=== PATIENT | female | born 1960 | race Caucasian/White ===

== ENCOUNTER 2019-10-12 09:16 | Outpatient (CLI) | payer OTHER, SELFPAY ==
--- NOTE | ~2019-10-12 | MM_ITS ---
EXAMINATION: MM screening [facility] BI w isabel HISTORY: Screening mammogram TECHNIQUE: Craniocaudal and mediolateral oblique 3-D tomosynthesis images were obtained and synthetic 2-D images were generated. CAD analysis was submitted and interpreted. COMPARISON: 10/10/2018, 10/04/2017, 06/24/2016 BREAST PARENCHYMAL COMPOSITION: The breasts are heterogeneously dense, which may obscure small masses . FINDINGS: A stable intramammary lymph node is present in the upper outer quadrant of the left breast. There is no evidence of suspicious mass, calcification, or architectural distortion to suggest malig henry in either breast. There has been no suspicious interval change. IMPRESSION: 1. No mammographic evidence of malignancy. 2. Recommend routine screening mammography in one year. BI-RADS Category 2: Benign finding(s). Reviewed, dictated and finalized at location A.
== END 2019-10-12 09:17 | disposition home or self-care (01) ==
LOC: ANHIMG 09:19
PROVIDERS: PCP Family Medicine; Visit Provider Family Medicine
DX: Z12.31 Encounter for screening mammogram for malignant neoplasm of breast (principal)
CPT/HCPCS: 77063; 77067

== ENCOUNTER 2019-11-29 13:57 | Outpatient (CLI) | payer OTHER, SELFPAY ==
--- NOTE | ~2019-11-29 | DEXA_ITS ---
Bone Density Report Name: Angela Beltran Age: 59 Sex: Female Ethnicity: White Date of : 1960 Indication: osteopenia; Referring Provider: Deirdre Mireles Study: Bone densitometry was performed. Exam Date: November 29, 2019 Accession number: [id number] Bone Density: Region BMD T-score Z-score Classification AP Spine (L1-L4) 0.894 -1.4 0.1 Osteopenia Femoral Neck (Left) 0.665 -1.7 -0.4 Osteopenia Total Hip (Left) 0.925 -0.1 0.8 Normal Total Hip Bilateral Avg 0.967 0.2 1.2 Normal Femoral Neck (Right) 0.758 -0.8 0.5 Normal Total Hip (Right) 1.008 0.5 1.5 Normal World Health Organization criteria for BMD impression classify patients as: Normal (T-score at or above -1.0), Osteopenia (T-score between -1.0 and -2.5), or Osteoporosis (T-score at or below -2.5). 10-year Fracture Risk(1): Major Osteoporotic Fracture 8.6% Hip Fracture 0.8% Reported Risk Factors: [place] (), Neck BMD=0.665, BMI=25.4 (1) FRAX(R) Version 3.08. Fracture probability calculated for an untreated patient. Fracture probability may be lower if the patient has received treatment. Previous Exams: Region Exam Age BMD T-score BMD Change BMD Change Date g/cm2 vs Baseline vs Previous AP Spine(L1-L4) 11/29/2019 59 0.894 -1.4 0.000(0.0%) 0.039(4.5%)# 06/24/2016 56 0.855 -1.7 -0.038(-4.3%)# -0.038(-4.3%)# 04/10/2012 51 0.894 -1.4 Total Hip(Left) 11/29/2019 59 0.925 -0.1 0.021(2.3%) -0.001(-0.1%)# 06/24/2016 56 0.926 -0.1 0.021(2.3%)# 0.021(2.3%)# 04/10/2012 51 0.905 -0.3 Total Hip(Right) 11/29/2019 59 1.008 0.5 0.076(8.2%)* 0.045(4.6%)# 06/24/2016 56 0.963 0.2 0.032(3.4%)# 0.032(3.4%)# 04/10/2012 51 0.931 -0.1 *Denotes significance at 95% confidence level, LSC for AP Spine = 0.022 g/cm2, LSC for Total Hip = 0.027 g/cm2 Clinical Information Provided by Patient: Has used the following medications: HRT (i.e. estrogen/hormone therapy), Vitamin D, Calcium Patient maximum height was 64 Menopause Age: 52 Onset of menses at age 13 Number of children 2 Impression: The patient has low bone mass, based on the Left Femoral Neck T-score. The patient has an estimated ten-year risk of hip fracture of 0.8% and an estimated ten-year risk of major fracture of 8.6%, based on the WHO FRAX algorithm. No significant bone loss was observed. Discussion: BONE DENSITY IS LOW AT ONE OR MORE SKELETAL SITES. This patie
== END 2019-11-29 13:58 | disposition home or self-care (01) ==
PROVIDERS: PCP Family Medicine; Visit Provider Family Medicine
DX: Z78.0 Asymptomatic menopausal state (principal); M85.88 Other specified disorders of bone density and structure, other site; M85.852 Other specified disorders of bone density and structure, left thigh
CPT/HCPCS: 77080

== ENCOUNTER 2020-03-31 02:16 | Outpatient (CLI) | payer OTHER, SELFPAY ==
[2020-03-31 19:10] LABS: SARS-CoV-2 RNA PCR Negative
== END 2020-03-31 02:17 | disposition home or self-care (01) ==
LOC: ANHCOVIDDT 02:17
PROVIDERS: PCP Family Medicine; Visit Provider Internal Medicine Gastroenterology
DX: Z01.812 Encounter for preprocedural laboratory examination (principal); Z20.828 Contact with and (suspected) exposure to other viral communicable diseases
CPT/HCPCS: 87635; C9803; U0003

== ENCOUNTER 2020-04-03 01:05 | Day surgery (SDC) | payer OTHER, SELFPAY ==
[2020-03-28 08:33] VITALS: BMI 26.6
--- NOTE | 2020-04-03 07:58 | WPDANESEPPF ---
Anes - Initial Pre Proc Eval Procedure: Operation Date: 04/03/20 10:00 Proposed Procedures p Screening Colonoscopy - Surinder Lua MD Date/Time: 04/03/20 07:58 Surgeon: Surinder Lua MD Pre Op Diagnosis: Neoplasm Screening Patient Data Age: 59 Gender: F Height: 1.61 m Weight: 69.5 kg Allergies Allergy/AdvReac Type Severity Reaction Status Date / Time No Known Allergies Allergy Unknown Verified 04/03/20 08:46 Home Medications Medication Instructions Recorded Confirmed Type sucralfate 1 gram tablet 1 g PO QID PRN 06/18/19 04/03/20 History bupropion HCl 300 mg 24 hr tablet, 300 mg PO QAM #90 tablet 10/19/19 04/03/20 Rx extended release telmisartan 20 mg tablet See Rx Instructions .ROUTE 12/14/19 04/03/20 Rx .COMPLEX #90 tablet atorvastatin 40 mg tablet 40 mg PO DAILY #90 tablet 03/07/20 04/03/20 Rx calcium carbonate-vitamin D3 2 tablet PO DAILY 03/28/20 04/03/20 History [Calcium 600 with Vitamin D3] fluconazole 150 mg tablet 150 mg PO ONCE #1 tablet 03/29/20 04/03/20 Rx clindamycin phosphate 2 % vaginal 1 appful VAGINAL DAILY 14 Days #40 03/30/20 04/03/20 Rx cream g esomeprazole magnesium 40 mg 40 mg PO DAILY #90 cap 03/31/20 04/03/20 Rx capsule,delayed release Patient hx anesthesia problems: none Family hx anesthesia problems: none PMFSH Past Medical History Medical History (Updated 04/03/20 @ 08:00 by Anish Salter MD) Actinic keratosis Calcium nephrolithiasis Encounter for dual-energy x-ray absoptiometry review Esophageal web Essential hypertension Fuchs' corneal dystrophy Hepatitis C antibody test negative Major depressive disorder, recurrent, unspecified Narcolepsy Osteoporosis Pure hypercholesterolemia, unspecified Surgical History Surgical History H/O cataract extraction History of blepharoplasty History of tonsillectomy Family History Family History Mother Diabetes mellitus Family history of cardiovascular disease Father Family history of cardiovascular disease Social History Social History Smoking status: Never smoker Alcohol intake: current Drinks per week: 4 Substance use: never Substance use type: does not use Living arrangements: with family Spiritual care concerns: No Anes - Eval Final PreProcedure Day of Procedure 04/03/20 07:58 Patient weight: overweight Heart: regular rate and rhythm Lungs: clear to auscultation and normal air movement Airway: Mallampati scale class II Neurological: alert and oriented Last oral intake: >/= 8 hours ASA classification: II Emergent: no Anesthetic plan: proceed Anesthesia type and monitoring: general GIVS Informed Consent: The patient's anesthetic plan and its attendant risks and benefits were discussed with the patient/family/POA. Questions were solicited and answers provided to the satisfaction of the patient/family/POA.
[2020-04-03 08:47] VITALS: BP 133/66; PULSE 74; RESP 16; TEMP 36.9; O2SAT 98
[2020-04-03] MEDS: LACTATED RINGERS 1,000 ML 150 ML IV CONT (08:57)
--- NOTE | 2020-04-03 09:13 | WPDGICN ---
Assessment and Plan Assessment and plan (1) Encounter for screening colonoscopy: Code(s): Z12.11 - Encounter for screening for malignant neoplasm of colon Status: Acute Assessment and Plan: Patient appears to be at average risk for colon polyps. IT has been 10 years since last exam. Screening colonoscopy will be performed today. (2) IBS (irritable bowel syndrome): Code(s): K58.9 - Irritable bowel syndrome without diarrhea Status: Acute Assessment and Plan: Patient has pellet-like stools. Plan is for increase in fiber supplementation. Consider FiberCon 2 tablets p.o. b.i.d.. GI Consult Note Consult date/time: 04/03/20 09:13 HPI: Angela Beltran is a 59 year old female Presents for screening colonoscopy. Patient reports has been more than 10 years since last colonoscopy. She states that her current weight appetite bowel movements are normal. She denies abdominal pain. She has had no bleeding. Family history is noncontributory. Patient reports occsional pellet-like stools. She has been diagnosed with irritable bowel syndrome. Review of Systems Review of Systems: All systems reviewed & are unremarkable except as noted in HPI and below PMFSH Past Medical History Medical History (Updated 04/03/20 @ 09:15 by Surinder Lua MD) Actinic keratosis Calcium nephrolithiasis Encounter for dual-energy x-ray absoptiometry review Esophageal web Essential hypertension Fuchs' corneal dystrophy Hepatitis C antibody test negative Major depressive disorder, recurrent, unspecified Narcolepsy Osteoporosis Pure hypercholesterolemia, unspecified Surgical History Surgical History H/O cataract extraction History of blepharoplasty History of tonsillectomy Family History Family History Mother Diabetes mellitus Family history of cardiovascular disease Father Family history of cardiovascular disease Social History Social History Smoking status: Never smoker Alcohol intake: current Drinks per week: 4 Substance use: never Substance use type: does not use Living arrangements: with family Spiritual care concerns: No Meds Home Medications and Allergies Home Medications Medication Instructions Recorded Confirmed Type sucralfate 1 gram tablet 1 g PO QID PRN 06/18/19 04/03/20 History bupropion HCl 300 mg 24 hr tablet, 300 mg PO QAM #90 tablet 10/19/19 04/03/20 Rx extended release telmisartan 20 mg tablet See Rx Instructions .ROUTE 12/14/19 04/03/20 Rx .COMPLEX #90 tablet atorvastatin 40 mg tablet 40 mg PO DAILY #90 tablet 03/07/20 04/03/20 Rx calcium carbonate-vitamin D3 2 tablet PO DAILY 03/28/20 04/03/20 History [Calcium 600 with Vitamin D3] fluconazole 150 mg tablet 150 mg PO ONCE #1 tablet 03/29/20 04/03/20 Rx clindamycin phosphate 2 % vaginal 1 appful VAGINAL DAILY 14 Days #40 03/30/20 04/03/20 Rx cream g esomeprazole magnesium 40 mg 40 mg PO DAILY #90 cap 03/31/20 04/03/20 Rx capsule,delayed release Allergies Allergy/AdvReac Type Severity Reaction Status Date / Time No Known Allergies Allergy Unknown Verified 04/03/20 08:46 Vital Signs Vital Signs - 24 hr 04/03/20 08:47 Temperature 98.4 F Pulse Rate 74 Respiratory Rate 16 Blood Pressure 133/66 Pulse Oximetry 98 Exam Narrative: Exam Narrative: Physical exam reveals Vital Signs to be stable. HEENT exam unremarkable. Lungs are clear to auscultation and percussion. Heart is without murmur or extra sounds. Abdominal exam bowel sounds are present soft nontender with no organomegaly. Digital external rectal exam is normal.
[2020-04-03 10:12] VITALS: BP 94/54; PULSE 68; RESP 16; O2SAT 96
[2020-04-03 10:22] VITALS: BP 105/65; PULSE 67; RESP 18; O2SAT 99
[2020-04-03 10:32] VITALS: BP 102/70; PULSE 62; RESP 18; O2SAT 99
[2020-04-03 10:42] VITALS: BP 115/75; PULSE 61; RESP 18; O2SAT 99
== END 2020-04-03 10:55 | disposition home or self-care (01) ==
PROVIDERS: PCP Family Medicine; Visit Provider Internal Medicine Gastroenterology
PROC: 0DJD8ZZ Inspection of Lower Intestinal Tract, Via Natural or Artificial Opening Endoscopic (ICD-10-PCS; CPT 45378; principal; 2020-04-03 10:00)
DX: Z12.11 Encounter for screening for malignant neoplasm of colon (principal); D12.5 Benign neoplasm of sigmoid colon; K63.5 Polyp of colon; K64.8 Other hemorrhoids; K58.9 Irritable bowel syndrome, unspecified; I10 Essential (primary) hypertension; H18.519 Endothelial corneal dystrophy, unspecified eye; F33.9 Major depressive disorder, recurrent, unspecified; M81.0 Age-related osteoporosis without current pathological fracture; E78.00 Pure hypercholesterolemia, unspecified; G47.419 Narcolepsy without cataplexy
CPT/HCPCS: 45385; 88305; J2704; J7120

== ENCOUNTER 2021-02-20 09:27 | Outpatient (CLI) | payer OTHER, SELFPAY ==
--- NOTE | ~2021-02-20 | MM_ITS ---
EXAMINATION: MM screening [place] BI w isabel HISTORY: Screening mammogram TECHNIQUE: Craniocaudal and mediolateral oblique 3-D tomosynthesis images were obtained and synthetic 2-D images were generated. CAD analysis was submitted and interpreted. COMPARISON: 10/12/2019, 10/12/2018, 10/04/2017 bilateral digital screening mammogram examinations BREAST PARENCHYMAL COMPOSITION: There are scattered areas of fibroglandular density. FINDINGS: Stable circumscribed bilateral axillary tail lymph nodes. Occasional benign calcifications are again noted. There is no evidence of suspicious mass, calcification, or architectural distortion to suggest malignancy in either breast. There has been no suspicious interval change. IMPRESSION: 1. No mammographic evidence of malignancy. 2. Recommend routine screening mammography in one year. BI-RADS Category 2: Benign finding(s). Reviewed, dictated and finalized at location A.
== END 2021-02-20 09:28 | disposition home or self-care (01) ==
LOC: ANHIMG 09:30
PROVIDERS: PCP Family Medicine; Visit Provider Internal Medicine
DX: Z12.31 Encounter for screening mammogram for malignant neoplasm of breast (principal)
CPT/HCPCS: 77063; 77067

== ENCOUNTER 2021-02-24 14:46 | Emergency (ER) | payer OTHER, SELFPAY ==
[2021-02-24 15:02] VITALS: BP 139/74; PULSE 79; RESP 16; TEMP 36.6; O2SAT 100
--- NOTE | 2021-02-24 15:39 | ED.FEMALEGU ---
HPI - Female Genitourinary General Chief complaint: Urogenital-Female Stated complaint: UTI Source: patient and RN notes reviewed Limitations: no limitations History of Present Illness HPI Narrative: The patient, on several routine meds, presents with a shorter 1 day history of urinary frequency and dysuria like prior UTIs. No fever, LBP, vomiting/diarrhea, abdominal pain, hematuria, vaginal discharge. Symptoms are mild most noticeable with micturition Related Data Home Medications Medication Instructions Recorded Confirmed calcium carbonate-vitamin D3 2 tablet PO DAILY 03/28/20 04/03/20 [Calcium 600 with Vitamin D3] Allergies Allergy/AdvReac Type Severity Reaction Status Date / Time No Known Allergies Allergy Unknown Verified 07/06/20 13:36 Review of Systems Review of Systems: General/Constitutional: No weight loss,fever Eyes: N0: Redness,discharge Ears/Nose/Throat: No: Epistaxis,ear discharge Respiratory: Denies: Hemoptysis Gastrointestinal: No Vomiting, Bleeding-rectal Skin: No Lumps, eruption Neurologic: No Focal Weakness,Sz Hematologic: Denies: Petechiae/Purpura Psychiatric: No: Suicida ideationl All Other Systems: Reviewed and Negative [facility] Past Medical History Medical History Actinic keratosis Calcium nephrolithiasis Encounter for dual-energy x-ray absoptiometry review Esophageal web Essential hypertension Fuchs' corneal dystrophy Hepatitis C antibody test negative Major depressive disorder, recurrent, unspecified Narcolepsy Osteoporosis Pure hypercholesterolemia, unspecified Surgical History Surgical History H/O cataract extraction History of blepharoplasty History of tonsillectomy Family History Family History Mother Diabetes mellitus Family history of cardiovascular disease Father Family history of cardiovascular disease Social History Social History Alcohol intake: current Drinks per week: 4 Substance use: never Substance use type: does not use Spiritual care concerns: No Comments At time of signature, agree with nursing past medical, surgical, social and family history. There is no relevant family history pertinent to the presenting complaint Exam Narrative: General Appearance: Well appearing, Conjunctiva clear Mouth/Throat: Normal appearing, Normal lips, Supple Respiratory: Airway patent, No respiratory distress Cardiovascular: RRR Abdomen: Soft, Non-tender, No massess, No organomegaly (no rebound/ surgical signs), no CVAT Musculoskeletal: Full ROM, Warm, Dry Neurological: A&O x3, , Normal affect Course Vital Signs Vital signs: Vital Signs Temperature 97.8 F 02/24/21 15:02 Pulse Rate 79 02/24/21 15:02 Respiratory Rate 16 02/24/21 15:02 Blood Pressure 139/74 02/24/21 15:02 Pulse Oximetry 100 02/24/21 15:02 Temperature 97.8 F 02/24/21 15:02 Pulse Rate 79 02/24/21 15:02 Respiratory Rate 16 02/24/21 15:02 Blood Pressure 139/74 02/24/21 15:02 Pulse Oximetry 100 02/24/21 15:02 MDM - Female Genitourinary Lab Data Labs: Urine Glucose Negative Reference Range: Negative Urine Bilirubin Negative Reference Range: Negative Urine Ketone Negative Reference Range: Negative Urine Specific [place] 1.015 Reference Range:1.001-1.035 Urine Blood 2+ Reference Range: Negative * * Urine pH
== END 2021-02-24 15:52 | disposition home or self-care (01) ==
PROVIDERS: Emergency Provider Emergency Medicine; PCP Internal Medicine
DX: N30.00 Acute cystitis without hematuria (principal); I10 Essential (primary) hypertension; E78.00 Pure hypercholesterolemia, unspecified; M81.0 Age-related osteoporosis without current pathological fracture; G47.419 Narcolepsy without cataplexy; H18.519 Endothelial corneal dystrophy, unspecified eye
CPT/HCPCS: 81003; 87077; 87086; 87088; 87186; 99213; G0463

== ENCOUNTER 2022-03-16 08:00 | Outpatient (CLI) | payer OTHER, SELFPAY ==
--- NOTE | ~2022-03-16 | MM_ITS ---
EXAMINATION: MM screening [place] BI w isabel HISTORY: Screening mammogram TECHNIQUE: Craniocaudal and mediolateral oblique 3-D tomosynthesis images were obtained and synthetic 2-D images were generated. CAD analysis was submitted and interpreted. COMPARISON: 02/20/2021, 10/12/2019, 10/10/2018 bilateral screening mammogram examinations 03/26/2013 bilateral screening mammogram BREAST PARENCHYMAL COMPOSITION: There are scattered areas of fibroglandular density. FINDINGS: Prominent left axillary lymph nodes are noted; with similar finding noted on 03/26/2013 scr eening mammogram. Stable benign-appearing small circumscribed axillary tail lymph nodes Minimal bilateral benign calcification. There is no evidence of suspicious mass, calcification, or ar chitectural distortion to suggest malignancy in either breast. There has been no suspicious interval change. IMPRESSION: 1. No mammographic evidence of malignancy. 2. Recommend routine screening mammography in one year. BI-RADS Category 2: Benign finding(s). Reviewed, dictated and finalized at location A. TY MANAGER
== END 2022-03-16 08:01 | disposition home or self-care (01) ==
LOC: ANHIMG 08:02
PROVIDERS: PCP Internal Medicine; Visit Provider Internal Medicine
DX: Z12.31 Encounter for screening mammogram for malignant neoplasm of breast (principal)
CPT/HCPCS: 77063; 77067

== ENCOUNTER 2023-07-23 15:03 | Outpatient (CLI) | payer OTHER, SELFPAY ==
--- NOTE | ~2023-07-23 | MM_ITS ---
EXAMINATION: MM screening [place] BI w isabel HISTORY: Screening mammogram TECHNIQUE: Craniocaudal and mediolateral oblique 3-D tomosynthesis images were obtained and synthetic 2-D images were generated. CAD analysis was submitted and interpreted. COMPARISON: 03/16/2022, 02/20/2021 screening mammogram examinations BREAST PARENCHYMAL COMPOSITION: There are scattered areas of fibroglandular density. FINDINGS: There is no evidence of suspicious mass, calcification, or architectural distortion to sugg est malignancy in either breast. There has been no suspicious interval change. IMPRESSION: 1. No mammographic evidence of malignancy. 2. Recommend routine screening mammography in one year. BI-RADS Category 1: Negative Reviewed, dictated and finalized at location A.
== END 2023-07-23 15:04 | disposition home or self-care (01) ==
LOC: ANHIMG 15:05
PROVIDERS: PCP Internal Medicine; Visit Provider Internal Medicine
DX: Z12.31 Encounter for screening mammogram for malignant neoplasm of breast (principal)
CPT/HCPCS: 77063; 77067